=== PATIENT | male | born 1955 | race Caucasian/White ===

== ENCOUNTER 2024-12-20 19:59 | Emergency (ER) | payer OTHER, MEDICAID ==
[~2024-12-20] VITALS: Ht 167.6 cm; Wt 180.0 kg
[~2024-12-20 19:59] MED LIST: BACL10TA PO; LEVAAER4 IN; LORA-1123 PO; LORA10CA PO; METO10TA3 PO; TRAM50TA2 PO
[2024-12-20 20:26] LABS: Basophils # (auto) 0.1 10 ^3/uL (0-0.2); Eosinophils # (auto) 0.1 10 ^3/uL (0-0.8); Eosinophils % (auto) 1.6 % (0.0-7.0); Hemoglobin 14.7 g/dL (13.5-17.5); Lymphocytes # (auto) 2.2 10 ^3/uL (0.4-5.4); Lymphocytes % (auto) 39.7 % (10.0-50.0); Mean Corpuscular Hemoglobin 37.4 pg (28.0-32.0); Mean Corpuscular Hgb Conc. 34.1 g/dL (32.0-36.0); Mean Corpuscular Volume 109.7 fL (80.0-100.0); Monocytes # (auto) 0.7 10 ^3/uL (0-1.3); Monocytes % (auto) 13.5 % (0.0-12.0); Neutrophils # (auto) 2.4 10 ^3/uL (1.6-8.6); Neutrophils % (auto) 44.2 % (37.0-80.0); Nucleated Red Blood Cells % 0.1 %; Platelet Count (auto) 114 10^3/uL (140-450); Red Blood Cells 3.92 10^6/uL (4.5-5.90); Red Cell Distribution Width 13.4 % (11.8-14.3); White Blood Cell 5.4 10^3/uL (4.4-10.8)
[2024-12-20 20:43] LABS: Albumin 4.4 g/dL (3.2-4.8); Alkaline Phosphatase 47 U/L (46-116); Anion Gap 10 (5-15); BUN/Creatinine Ratio 20.3 (10.0-20.0); Blood Urea Nitrogen 16 mg/dL (9-23); Calcium 9.6 mg/dL (8.7-10.4); Carbon Dioxide 29 mmol/L (20-31); Chloride 104 mmol/L (98-107); Potassium 3.7 mmol/L (3.5-5.1); Sodium 143 mmol/L (136-145); Total Protein 7.8 g/dL (5.7-8.2)
[2024-12-20 20:44] LABS: Alanine Aminotransferase 118 U/L (7-40); Aspartate Aminotransferase 201 U/L (13-40); Bilirubin, Total 0.5 mg/dL (0.2-1.0); Glucose 107 mg/dL (74-106)
[2024-12-20] MEDS: IPRATROPIUM BROM 0.5 MG/2.5ML INH SOL NEB ONE (20:57)
[2024-12-20] MEDS: ALBUTEROL SULF 2.5 MG/0.5ML(0.5%) NEB SOLN NEB ONE (20:58)
[2024-12-20 21:03] VITALS: BP 157/82; RESP 18; TEMP 98.7; O2SAT 96
[2024-12-20] MEDS: DexAMETHasone SOD PHOS 10MG/1ML VIAL INJ IV ONE (21:10)
[2024-12-20] MEDS: IOHEXOL 350 MG/ML 100ML IJ ONE (21:22)
[2024-12-20 21:45] VITALS: PULSE 94
--- NOTE | 2024-12-20 21:45 | ED.PDOC ---
History of Present Illness HPI Comments 69 y/o M is BIBA for c/o shortness of breath, productive cough, and wheezing, today. Per EMS report, patient's family called on his behalf after checking in on him in his private, remote residence, today, after endorsing on having symptoms for the past 2x weeks following initial unprovoked onset. Patient has a history of asthma, COPD, HTN, and liver disease. He denies any chest pain, palpitations, hemoptysis, fever, chills, or other associated symptoms or modifiers at this time. Patient was mildly hypertensive on arrival and satting at 94% on room air. Chief Complaint: Shortness of Breath Time Seen by MD: 20:00 Reviewed Notes: Nurses Notes, Revolving Inventory Clerk Notes, Medications, Allergies Allergies: Coded Allergies: NO KNOWN ALLERGIES (Unverified , 02/23/14) Home Meds Reported Medications Levalbuterol Tartrate (Xopenex Hfa) Aer, 1 IN, AER 02/24/14 Loratadine (Claritin) 10 Mg Cap, 10 MG PO DAILY, CAP 02/24/14 Tramadol Hcl (Tramadol Hcl) 50 Mg Tab, 50 MG PO QID, TAB 02/24/14 Lorazepam (Lorazepam) 1 Mg Tab, 1 MG PO TID, TAB 02/24/14 Metoclopramide Hcl (Metoclopramide Hcl) 10 Mg Tab, 10 MG PO TID, TAB 02/24/14 Baclofen (Baclofen) 10 Mg Tab, 10 MG PO TIDP PRN for FOR MUSCLE SPASM, TAB 02/24/14 Information Source: Patient, Emergency Med Personnel Mode of Arrival: EMS Severity: Moderate Timing: Weeks Duration: Since onset Prehospital treatment: 12 Lead EKG, Csr Technician Past Medical History PAST MEDICAL HISTORY: Asthma, COPD, HTN, Liver Surgical History: Denies all surgeries Family History Family History: No family hx of Heart abimael Social History Smoker: Cigarettes Alcohol: Heavy Drugs: Denies Drug Use Lives In: Home Constitutional: denies: chills, diaphoresis, fatigue, fever, malaise, sweats, weakness, others EENTM: reports: throat pain, voice changes; denies: blurred vision, double vision, ear bleeding, ear discharge, ear drainage, ear pain, ear ringing, eye pain, eye redness, hearing loss, mouth pain, mouth swelling, nasal discharge, nose bleeding, nose congestion, nose pain, photophobia, tearing, throat swelling, others Respiratory: reports: cough, SOB at rest, shortness of breath; denies: hemoptysis, orthopnea, SOB with excertion, stridor, wheezing, others Cardiovascular: denies: chest pain, dizzy spells, diaphoresis, Dyspnea on exertion, edema, irregular heart beat, left arm pain, lightheadedness, palpitations, PND, syncope, others Gastrointestinal: denies: abdomen distended, abdominal pain, blood streaked bowels, constipated, diarrhea, dysphagia, difficulty swallowing, hematemesis, melena, nausea, poor appetite, poor fluid intake, rectal bleeding, rectal pain, vomiting, others Genitourinary: denies: burning, dysuria, flank pain, frequency, hematuria, incontinence, penile discharge, penile sore, pain, testicle pain, testicle swelling, urgency, others Neurological: denies: dizziness, fainting, headache, left sided numbness, left sided weakness, numbness, paresthesia, pre-existing deficit, right sided numbness, right sided weakness, seizure, speech problems, tingling, tremors, weakness, others Musculoskeletal: denies: back pain, gout, joint pain, joint swelling, muscle pain, muscle stiffness, neck pain, others Integumetry: denies: bruises, change in color, change in hair/nails, dryness, laceration, lesions, lumps, rash, wounds, others Allergic/Immunocompromised: denies: Difficulty Healing, Frequent Infections, Hives, Itching, others Hematologic/Lymphatic: denies: anemia, blood clots, easy bleeding, easy bruising, swollen glands, others Endocrine: denies: excessive hunger, excessive sweating, excessive thirst, excessive urination, flushing, intolerance to cold, intolerance to heat, unexplained weight gain, unexplained weight loss, others Psychiatric: denies: anxiety, bipolar disorder, depression, hopeless, panic disorder, schizophrenia, sleepless, suicidal, others All Other Systems: Reviewed and Negative (as per HPI) Physical Exam General Appearance: Moderate Distress (Patient appears to be in aeyk-ip-ebumbnly distress at time of evaluation. Patient appears older than his chronology and appears to be in poor overall health.), Normal HEENT: Normal ENT Inspection, Pharynx Normal, TMs Normal Neck: Full Range of Motion, Non-Tender, Normal, Normal Inspection Respiratory: Other (Mild right middle lobe wheeze on auscultation. Possible right upper lobe rhonchi. No accessory muscle use. No signs of respiratory distress.) Cardiovascular: No Edema, No JVD, No Murmur, No Gallop, Normal Peripheral Pulses, Regular Rate/Rhythm Breast Exam: Deferred Gastrointestinal: No Organomegaly, Non Tender, No Pulsatile Mass, Normal Bowel Sounds, Soft Genitalia: Deferred Pelvic: Deferred Rectal: Deferred Extremities: No calf tenderness, Normal capillary refill, Normal inspection, Normal range of motion, Non-tender, No pedal edema Neurologic: Alert, No Motor Deficits, Normal Affect, Normal Mood, No Sensory Deficits Cerebellar Function: Normal Reflexes: Normal Skin: Dry, Normal Color, Warm Lymphatic: No Adenopathy Was a procedure done? Was a procedure done?: No EKG EKG : Pulse Rate (adult): 94 [place]: Normal Cardiac Rhythm: NSR Block: None Hypertrophy: None ST: Normal Differential Dx Considerations may include: COPD exacerbation, acute respiratory distress, URI, PNA, viral syndrome, among others X-Ray, Labs, Meds, VS Vital Signs Date Time Temp Pulse Resp B/P (MAP) Pulse Ox O2 Delivery O2 Flow Rate FiO2 12/20/24 21:45 94 12/20/24 21:03 98.7 100 18 157/82 (107) 96 98.7 12/20/24 21:03 100 18 96 Room Air 12/20/24 20:57 22 97 Room Air* 0 21 12/20/24 20:06 94 12/20/24 19:59 98.6 98 20 182/95 (124) 94 98.6 Lab Test 12/20/24 21:10 12/20/24 20:13 Range/Units Troponin I High Sensitivity 5 5 </=54 ng/L White Blood Count 5.4 4.4-10.8 10^3/uL Red Blood Count 3.92 L 4.5-5.90 10^6/uL Hemoglobin 14.7 13.5-17.5 g/dL Hematocrit 43.0 41.0-53.0 % Mean Corpuscular Volume 109.7 H 80.0-100.0 fL Mean Corpuscular Hemoglobin 37.4 H 28.0-32.0 pg Mean Corpuscular Hemoglobin Concent 34.1 32.0-36.0 g/dL Red Cell Distribution Width 13.4 11.8-14.3 % Platelet Count 114 L 140-450 10^3/uL Mean Platelet Volume 6.8 L 6.9-10.8 fL Neutrophils (%) (Auto) 44.2 37.0-80.0 % Lymphocytes (%) (Auto) 39.7 10.0-50.0 % Monocytes (%) (Auto) 13.5 H 0.0-12.0 % Eosinophils (%) (Auto) 1.6 0.0-7.0 % Basophils (%) (Auto) 1.0 0.0-2.0 % Neutrophils # (Auto) 2.4 1.6-8.6 10 ^3/uL Lymphocytes # (Auto) 2.2 0.4-5.4 10 ^3/uL Monocytes # (Auto) 0.7 0-1.3 10 ^3/uL Eosinophils # (Auto) 0.1 0-0.8 10 ^3/uL Basophils # (Auto) 0.1 0-0.2 10 ^3/uL Nucleated Red Blood Cells 0.1 % Sodium Level 143 136-145 mmol/L Potassium Level 3.7 3.5-5.1 mmol/L Chloride Level 104 98-107 mmol/L Carbon Dioxide Level 29 20-31 mmol/L Anion Gap 10 5-15 Blood Urea Nitrogen 16 9-23 mg/dL Creatinine 0.79 0.700-1.30 mg/dL Glomerular Filtration Rate Calc 97 >90 mL/min BUN/Creatinine Ratio 20.3 H 10.0-20.0 Serum Glucose 107 H 74-106 mg/dL Lactic Acid Level 2.0 0.4-2.0 mmol/L Calcium Level 9.6 8.7-10.4 mg/dL Total Bilirubin 0.5 0.2-1.0 mg/dL Aspartate Amino Transferase (AST) 201 H 13-40 U/L Alanine Aminotransferase (ALT) 118 H 7-40 U/L Alkaline Phosphatase 47 46-116 U/L B-Type Natriuretic Peptide 6.53 0-100 pg/mL Total Protein 7.8 5.7-8.2 g/dL Albumin 4.4 3.2-4.8 g/dL Current Medications Medications (Trade) Dose Ordered Sig/Markel Route Start Time Stop Time Status Last Admin Albuterol (Ventolin Medneb) 5 mg ONCE ONCE NEB 12/20/24 20:15 12/20/24 20:16 DC 12/20/24 20:58 Ipratropium [place] (Atrovent Medneb) 0.5 mg ONCE ONCE NEB 12/20/24 20:15 12/20/24 20:16 DC 12/20/24 20:57 Dexamethasone Sodium Phosphate (Decadron Injection) 10 mg ONCE ONCE IV 12/20/24 20:15 12/20/24 20:16 DC 12/20/24 21:10 X-Ray, Labs, Meds, VS Comment All studies performed the ED were evaluated by me personally. EKG revealed sinus rhythm with a rate of 94. Borderline T-wave abnormalities in the inferior leads as well as base line wander in leads two three and AVF. PA interval of 154 and QT interval of 371. Serum laboratories were only remarkable for confirmation of the fatty liver concerns. CT with contrast of chest and neck were unremarkable for any neoplastic concerns for consolidation. Patient appears to be suffering from a viral upper respiratory illness. Advised patient utilize medication as needed for symptomatic relief as well as good hydration and healthy nutrition throughout illness event. Time of 1ST Reevaluation: 22:45 Reevaluation 1ST: Improved Consultation: PCP Patient Education/Counseling: Diagnosis, Treatment Family Education/Counseling: Diagnosis, Treatment, No Family Present Departure 1 Departure Time of Disposition: 22:48 Impression: Primary Impression: COPD exacerbation Additional Impression: Viral upper respiratory illness Disposition: HOME / SELF CARE / HOMELESS Condition: Stable Additional Instructions: Advised patient utilize medication as needed for symptomatic relief as well as good hydration and healthy nutrition throughout illness event. e-Prescriptions Acetaminophen (Acetaminophen) 500 Mg Tab 500 MG PO Q4HP PRN, #30 TAB Prov: ANA ALDANA PAC 12/20/24 Albuterol Sulfate (Albuterol Sulfate Hfa) 108 Mcg/Act Aer 108 MCG IN Q4HP PRN, #1 AER Prov: ANA ALDANA PAC 12/20/24 Discharged With: Self, Friend Critical Care Note Critical Care Time?: No Stability Stability form required: No Heart Score Heart Score: Heart Score Response (Comments) Value History Slightly Suspicious 0 EKG Normal 0 Age >65 2 Risk Factors >3 or Hx ASHD 2 Troponin Normal limit 0 Total 4 I personally scribed for ANA ALDANA PAC ([email or web address]) on 12/20/24 at 21:45. Electronically submitted by Jesus Joseph [email or web address]). ANA ALDANA PAC Dec 20, 2024 21:45
--- NOTE | 2024-12-20 22:27 | DVH ---
EXAM: CT CT ANGIO NECK CONTRAST CLINICAL HISTORY: Possible Mets TECHNIQUE: CT angiogram of the neck was performed without and with intravenous contrast. 3D MIP anastasia nstructed images were created and archived on the PACS system. This exam was performed according to o departmental dose optimization program. Up-to-date CT equipment and radiation dose reduction techn iques are utilized as appropriate. COMPARISON: None FINDINGS: CTA neck: Minor calcified plaque in the aortic arch. The aortic arch vessel origins are widely patent. Moderate calcified plaque at the left carotid bifurcation extending into the origin of the internal carotid a rtery. The common carotid and cervical portions of the internal carotid and vertebral arteries are pa tent without focal narrowing according to NASCET criteria. No aneurysm, AVM, or dissection is identif ied. The cervical soft tissues are unremarkable. The paranasal sinus and mastoid air cells are clear. See separately dictated same day CT chest for discussion of lung findings. The patient is edentulous. Th ere is moderate multilevel cervical spondylosis. There is grade 1 anterolisthesis at C2-C3, C3-C4, C 4-C5 and C7-T1, likely degenerative. No discrete neck mass or lymphadenopathy. IMPRESSION: 1. Widely patent arteries in the neck without large vessel occlusion, significant stenosis, or dissec tion. 2. Moderate calcified plaque in the left carotid bifurcation extending to the origin of the internal carotid artery.
--- NOTE | 2024-12-20 22:33 | DVH ---
Procedure: CT CHEST WITH CONTRAST Reason for study/Clinical History: Possible mets Comparison Study: None available at time of dictation. Exam Date: 12/20/2024 09:45 PM Radiation Dose Information: CT Dose: CTDI volume is 16.35 mGy. Dose-length product is 588.71 mGy*cm Contrast: Type of contrast: Omnipaque 350 Contrast inject: 50 mL Contrast wasted:0 TECHNIQUE: After the uneventful administration of intravenous contrast intravenously, CT imaging was performed through the chest. Coronal and sagittal reformations were performed by the technologist. FINDINGS: Lower Neck: Visualized portions of the thyroid gland are unremarkable. Aorta and Vasculature: Normal caliber of thoracic aorta. Lymph Nodes: No enlarged intrathoracic lymph nodes. Mediastinum: Heart size is normal. There is no pericardial effusion. The esophagus is unremarkable. Lungs: No focal consolidation, pleural effusion or significant pneumothorax. No suspicious pulmonary nodule or mass. Musculoskeletal: No acute osseous abnormality. Upper abdomen: Limited portions of the upper abdomen are unremarkable. Hepatic changes consistent wit h steatosis. IMPRESSION: 1. .No pulmonary nodules or masses. 2. No adenopathy visualized. 3. Hepatic steatosis. All CT scans at this medical facility are performed using dose modulation techniques as appropriate t o a performed exam including the following: Automated exposure control was utilized; adjustment of th e MA and/or KV according to patient size; and use of iterative reconstruction technique. HS:Y
[2024-12-20] MEDS ORDERED: ALBU108A5 IN (22:50)
[2024-12-20] MEDS ORDERED: ACET500T58 PO (22:50)
--- NOTE | 2024-12-21 06:15 | ECG ---
[facility] Test Date: 2024-12-20 Test Time: 20:06:12 Pat Name: MENDEZ MOORE Department: ED Room: Gender: M Therapeutic Strategy Lead: CAROL : 1955 Requested By: ANA ALDANA Order Number: [id number] Reading MD: Measurements Intervals [place] Rate: 94 P: 64 WV: 154 QRS: 63 QRSD: 94 T: -24 QT: 371 QTc: 464 Interpretive Statements Sinus rhythm Borderline T abnormalities, inferior leads Baseline wander in lead(s) II,III,aVF Please click the below link to view image of tracing.
== END 2024-12-20 23:47 | disposition home or self-care (01) ==
LOC: EDBD 19:59 → ER 19:59
DX: J44.1 Chronic obstructive pulmonary disease with (acute) exacerbation (principal); J06.9 Acute upper respiratory infection, unspecified; B97.89 Other viral agents as the cause of diseases classified elsewhere; I10 Essential (primary) hypertension; F17.210 Nicotine dependence, cigarettes, uncomplicated; Z79.899 Other long term (current) drug therapy
CPT/HCPCS: 36415; 70498; 71260; 80053; 83605; 83880; 84484; 85025; 93005; 94640; 96374; 99285; J1100; Q9967